=== PATIENT | male | born 1975 | race Caucasian/White ===

== ENCOUNTER 2018-09-22 06:01 | Day surgery (SDC) | payer OTHER, BC ==
[~2018-09-22] VITALS: Ht 177.8 cm; Wt 81.7 kg
[~2018-09-22 06:01] MED LIST: AMLO5 PO; CEPH500; CRUTCH4 USE; HYDACE5; HYDACE5 PO; Hair, Skin & N1 EACH PO; KETO10 PO; LISI5 PO; SUDAFED 12-HOU120 MG PO; SULTRIDS; ZESTORETIC 20-121 EA
--- NOTE | 2018-09-22 06:23 | NUR ---
Ambulatory in Day Surgery History, Chart, Medications and Allergies reviewed before start of procedure.Lungs clear T/O to Auscultation. Patient confirms NPO status and agrees with scheduled surgery. Patient reports completing Chlorhexadine shower X2 prior to admission to hospital.
--- NOTE | 2018-09-22 09:24 | NUR ---
ARRIVED FROM PACU RECIEVED REPORT VSS ALERT TALKING TO STAFF RATES PAIN AT 2. DENIES WATER AND OR DRINK AT THIS TIME
--- NOTE | 2018-09-22 09:36 | NUR ---
SAT UP WITH BOOST FROM 2 NURSES GIVEN WATER AND CRACKER AT THIS TIME
--- NOTE | 2018-09-22 09:47 | NUR ---
GIVEN RX AT [facility] TIME FOR PAIN. RATES PAIN AT THREE TO 3.5.. WILL MONITOR.
--- NOTE | 2018-09-22 10:19 | NUR ---
Discharge instructions reviewed with patient. Patient verbalizes understanding. Copy given to patient to take home. Patient States Post-Procedure ride home has been arranged. Discharged via wheelchair to private car for ride home.
--- NOTE | 2018-09-23 16:05 | NUR ---
09/23/18 1604 Radha Jackson VERIFICATIONS: EDIT CHAT.
== END 2018-09-22 22:44 | disposition home or self-care (01) ==
LOC: ORSCMMR 06:01 → ORD 07:30 → ORSCMMR 22:44
PROVIDERS: Surgery
PROC: 0WUF0JZ Supplement Abdominal Wall with Synthetic Substitute, Open Approach (ICD-10-PCS; principal; 2018-09-22 07:30)
DX: K42.9 Umbilical hernia without obstruction or gangrene (principal); I10 Essential (primary) hypertension; K21.9 Gastro-esophageal reflux disease without esophagitis; Z79.899 Other long term (current) drug therapy
CPT/HCPCS: C1781; J0330; J0690; J1100; J2250; J2405; J2710; J3010; J7120

== ENCOUNTER 2021-12-11 10:15 | Day surgery (SDC) | payer BC ==
[~2021-12-11] VITALS: Ht 182.9 cm; Wt 134.6 kg
[2021-12-11] MEDS ORDERED: IBUP200 (10:38)
[2021-12-11] MEDS ORDERED: ACET325 (10:38)
== END 2021-12-11 12:01 | disposition home or self-care (01) ==
LOC: ORSCSDS 10:15
PROVIDERS: Internal Medicine Gastroenterology
PROC: 0D757ZZ Dilation of Esophagus, Via Natural or Artificial Opening (ICD-10-PCS; principal; 2021-12-11 11:30)
PROC: 0DB58ZX Excision of Esophagus, Via Natural or Artificial Opening Endoscopic, Diagnostic (ICD-10-PCS; principal; 2021-12-11 11:30)
PROC: 0DB78ZX Excision of Stomach, Pylorus, Via Natural or Artificial Opening Endoscopic, Diagnostic (ICD-10-PCS; principal; 2021-12-11 11:30)
DX: R13.10 Dysphagia, unspecified (principal); K22.2 Esophageal obstruction; K29.70 Gastritis, unspecified, without bleeding; I10 Essential (primary) hypertension; Z87.891 Personal history of nicotine dependence; K21.9 Gastro-esophageal reflux disease without esophagitis; Z79.899 Other long term (current) drug therapy; Z86.16 Personal history of COVID-19
CPT/HCPCS: 88305; 88312; 88342; J2250; J2704; J7120

== ENCOUNTER → 2022-09-16 | Outpatient (CLI) | payer BC ==
[~2022-09-16] MED LIST changes: +ACET325; +IBUP200; +OMEP20ER
[2022-09-16 13:14] LABS: BASOPHILS ABSOLUTE AUTO 0.07 K/mm3 (0.00-0.23); BASOPHILS PERCENT AUTO 1 % (0-2); EOSINOPHILS ABSOLUTE AUTO 0.45 K/mm3 (0.00-0.68); EOSINOPHILS PERCENT AUTO 5 % (0-6); Hematocrit 44.4 % (37.0-53.0); Hemoglobin 15.1 g/dL (13.5-17.5); IMMATURE GRAN ABSOLUTE AUTO 0.03 K/mm3 (0.00-0.10); IMMATURE GRAN PERCENT AUTO 0 % (0-1); LYMPHOCYTES ABSOLUTE AUTO 3.38 K/mm3 (0.84-5.20); LYMPHOCYTES PERCENT AUTO 36 % (21-46); MONOCYTES ABSOLUTE AUTO 0.96 K/mm3 (0.16-1.47); MONOCYTES PERCENT AUTO 10 % (4-13); Mean Corpuscular Volume 82 fL (80-100); Mean Platelet Volume 11.6 fL (9.1-12.4); NEUTROPHILS ABSOLUTE AUTO 4.61 K/mm3 (1.96-9.15); NEUTROPHILS PERCENT AUTO 49 % (41-73); Platelet Count 253 K/mm3 (150-400); RDW Coefficient Variation 13.3 % (11.7-14.2); RDW Standard Deviation 39.9 fL (35.1-46.3); Red Blood Cell Count 5.39 M/mm3 (4.30-5.90)
[2022-09-16 13:29] LABS: Albumin, Blood 3.8 g/dL (3.4-5.0); Albumin/Globulin Ratio 1.3 (0.8-1.8); Bilirubin, Total 0.5 mg/dL (0.1-1.0); Bun/Creatinine Ratio 27.3 (12.0-20.0); Calcium, Blood 9.1 mg/dL (8.5-10.1); Creatinine, Blood 0.7 mg/dL (0.60-1.20); Potassium, Blood 3.8 mmol/L (3.5-5.5); Total Protein, Blood 6.8 g/dL (6.4-8.2)
== END | disposition home or self-care (01) ==
LOC: LAB 09:25 → LAB SHORT 09:25
PROVIDERS: Nurse Practitioner Family
DX: Z13.0 Encounter for screening for diseases of the blood and blood-forming organs and certain disorders involving the immune mechanism (principal); R94.5 Abnormal results of liver function studies; R73.03 Prediabetes
CPT/HCPCS: 80053; 83036; 85025